=== PATIENT | female | born 1960 | race African-American/Black ===

== ENCOUNTER 2022-09-01 20:56 | Emergency (ER) | payer OTHER ==
[~2022-09-01] VITALS: Ht 160 cm; Wt 104.0 kg
[2022-09-01] MEDS ORDERED: ALBU8HFA IH (21:15)
[2022-09-01] MEDS ORDERED: INSLAN SQ (21:15)
[2022-09-01] MEDS ORDERED: INSU100V SQ (21:15)
[2022-09-01] MEDS ORDERED: IPRATROPIUM BROMIDE 0.5 MG/2.5 ML NEB SOLUTION NEB ONE (22:15)
[2022-09-01] MEDS ORDERED: PredniSONE 20 MG TABLET PO ONE (22:15)
[2022-09-01] MEDS ORDERED: ALBUTEROL SULFATE 2.5 MG/0.5 ML NEB SOLUTION NEB ONE (22:15)
[2022-09-02] MEDS ORDERED: ALBU8HFA IH (01:51)
[2022-09-02] MEDS ORDERED: PRED-554 PO (01:51)
[2022-09-02] MEDS ORDERED: AZIT250T9 PO (01:51)
[2022-09-02 02:29] VITALS: BP 135/79
== END 2022-09-02 02:50 | disposition home or self-care (01) ==
LOC: EMS 20:57
DX: J45.909 Unspecified asthma, uncomplicated (principal); J44.9 Chronic obstructive pulmonary disease, unspecified; E11.9 Type 2 diabetes mellitus without complications
CPT/HCPCS: 99285; 71045; 94640; 93005; J7512; J7613